=== PATIENT | male | born 1980 | race Two or more races ===

== ENCOUNTER 2020-09-17 11:35 | Emergency (ER) | payer SELFPAY ==
[~2020-09-17] VITALS: Ht 185.4 cm; Wt 158.8 kg
[2020-09-17 13:59] VITALS: BP 177/91
[2020-09-17] MEDS ORDERED: LIDOCAINE 1% HCL (LOCAL ANESTH.) INJ 20ML MDV IJ ONE (14:15)
== END 2020-09-17 14:48 | disposition home or self-care (01) ==
LOC: ER 11:35
DX: S61.211A Laceration without foreign body of left index finger without damage to nail, initial encounter (principal); W22.8XXA Striking against or struck by other objects, initial encounter; Y93.89 Activity, other specified; Y92.89 Other specified places as the place of occurrence of the external cause; Y99.8 Other external cause status
CPT/HCPCS: 12002; 99283; J2001